=== PATIENT | male | born 1985 | race Two or more races ===

== ENCOUNTER 2023-01-23 16:57 | Emergency (ER) | payer MEDICAID ==
[~2023-01-23] VITALS: Ht 185.4 cm; Wt 95.3 kg
[2023-01-23] MEDS ORDERED: MIDAZOLAM 50 MG/10 ML VIAL ONE (17:26)
[2023-01-23] MEDS ORDERED: MIDAZOLAM HCL 2 MG/2ML VIAL IM ONE ×2 (17:30→23:30)
[2023-01-23 20:07] LABS: BASOPHILS # (AUTO) 0.1 K/uL (0.0-0.2); BASOPHILS % (AUTO) 0.5 % (0.0-2.0); EOSINOPHILS % (AUTO) 0.1 % (0.0-6.0); HEMATOCRIT 37 % (39-51); LYMPHOCYTES # (AUTO) 1.8 K/uL (0.8-4.8); LYMPHOCYTES % (AUTO) 18.1 % (20.0-44.0); MEAN CORPUSCULAR HEMOGLOBIN 32 PG (26.0-33.0); MEAN CORPUSCULAR HGB CONC 35 g/dl (31.0-36.0); MEAN CORPUSCULAR VOLUME 91 fL (80-96); MONOCYTES # (AUTO) 0.9 K/uL (0.1-1.30); MONOCYTES % (AUTO) 9.3 % (2.0-12.0); NEUTROPHILS # (AUTO) 7.3 K/uL (1.8-8.9); PLATELET COUNT (AUTO) 311 K/uL (150-450); RED BLOOD CELL COUNT(AUTO) 4.08 MIL/uL (4.5-6.0); RED CELL DISTRIBUTION WIDTH 13.9 % (11.5-15.0); WHITE BLOOD COUNT (AUTO) 10.1 K/uL (4.3-11.0)
[2023-01-23 20:15] LABS: CARBON DIOXIDE 26 mmol/L (21-32); CHLORIDE 102 mmol/L (98-107); CREATININE 1.2 mg/dL (0.6-1.3); GLUCOSE 91 mg/dL (74-106); POTASSIUM 3.6 mmol/L (3.5-5.1); SODIUM SERUM 137 mmol/L (136-145); UREA NITROGEN, BLOOD 14 mg/dL (7-18)
[2023-01-23 20:21] LABS: ACETAMINOPHEN 0 ug/ml (10-30); ALANINE AMINOTRANSFERASE 35 U/L (12-78); ALBUMIN 4.1 g/dL (3.4-5.0); ALCOHOL, BLOOD < 3 mg/dL (0-10); ALKALINE PHOSPHATASE 67 U/L (46-116); ASPARTATE AMINOTRANSFERASE 47 U/L (15-37); BILIRUBIN,DIRECT 0.4 mg/dL (0.0-0.2); BILIRUBIN,TOTAL 3.8 mg/dL (0.2-1.0); SALICYLATE < 2.3 mg/dL (2.8-20.0); TOTAL PROTEIN, SERUM 6.9 g/dL (6.4-8.2)
[2023-01-23 21:06] LABS: APPEARANCE,URINE CLEAR (CLEAR); BILIRUBIN,URINE 1+ (NEGATIVE); BLOOD, URINE 3+ Ery/uL (NEGATIVE); COLOR,URINE YELLOW (YELLOW); KETONES,URINE 3+ mg/dL (NEGATIVE); LEUKOCYTE ESTERASE ,URINE NEGATIVE (NEGATIVE); NITRITE, URINE NEGATIVE (NEGATIVE); PH,URINE 6.5 (5.0-8.0); PROTEIN,URINE TRACE mg/dl (NEGATIVE); UGLUCOSE NEGATIVE (NEGATIVE)
[2023-01-23 21:36] LABS: ADD URINE CULTURE NO; BACTERIA,URINE None seen /HPF (None Seen); RBC,URINE 51-80 /HPF (0-2); WBC,URINE 0-2 /HPF (0-3)
[2023-01-23] MEDS ORDERED: OLANZAPINE 5 MG TABLET ONE (21:40)
[2023-01-23 21:42] LABS: BARBITURATE, URINE NEGATIVE (NEGATIVE); COCCAINE, URINE NEGATIVE (NEGATIVE); OPIATE, URINE NEGATIVE (NEGATIVE); PHENCYCLIDINE SCREEN,URINE NEGATIVE (NEGATIVE)
[2023-01-23 21:55] LABS: AMPHETAMINE, URINE POSITIVE (NEGATIVE); BENZODIAZEPINE, URINE POSITIVE (NEGATIVE); CANNABINOID, URINE POSITIVE (NEGATIVE)
[2023-01-23] MEDS ORDERED: OLANZAPINE 5 MG TABLET PO ONE (22:00)
[2023-01-23] MEDS ORDERED: IV NS 0.9% 1,000 ML BAG IV ONE (22:30)
[2023-01-23 22:39] LABS: INR 1.16 (0.91-1.10); PROTHROMBIN TIME 12.2 SECS (9.2-11.1)
[2023-01-23] MEDS ORDERED: diphenhydrAMINE HCL 50 MG/ML VIAL ONE (23:28)
[2023-01-23] MEDS ORDERED: MIDAZOLAM HCL 5 MG/5ML VIAL ONE (23:28)
[2023-01-23] MEDS ORDERED: diphenhydrAMINE HCL 50 MG/ML VIAL IM ONE (23:30)
[2023-01-24] MEDS ORDERED: LORAZEPAM INJ 2 MG/ML VIAL ONE (00:30)
[2023-01-24] MEDS ORDERED: HALOPERIDOL LACTATE INJ 5 MG/ML VIAL IM ONE (00:30)
[2023-01-24] MEDS ORDERED: LORAZEPAM INJ 2 MG/ML VIAL IM ONE (00:30)
[2023-01-24] MEDS ORDERED: HALOPERIDOL LACTATE INJ 5 MG/ML VIAL ONE (00:30)
[2023-01-24 16:10] VITALS: BP 131/72; TEMP 98.1; O2SAT 98
== END 2023-01-24 18:11 ==
LOC: ER 16:57
DX: F19.10 Other psychoactive substance abuse, uncomplicated (principal); R45.1 Restlessness and agitation; Z20.822 Contact with and (suspected) exposure to COVID-19
CPT/HCPCS: 99285; 96372 ×4; 85025; 80048; 80076; 85610; 85045; 81001; 36415; 87426; 80143; 80320; 80307; J1200; J2250 ×2; J7030; C9803; J2060; J1630; G0480

== ENCOUNTER 2023-01-25 18:04 | Emergency (ER) | payer MEDICAID ==
[~2023-01-25] VITALS: Ht 185.4 cm; Wt 95.3 kg
[2023-01-25] MEDS ORDERED: DIAZEPAM 5 MG/ML 2 ML DISP.SYRIN IV ONE (18:30)
[2023-01-25] MEDS ORDERED: diphenhydrAMINE HCL 50 MG/ML VIAL IV ONE (18:30)
[2023-01-25] MEDS ORDERED: diphenhydrAMINE HCL 50 MG/ML VIAL ONE (18:42)
[2023-01-25] MEDS ORDERED: DIAZEPAM 5 MG/ML 2 ML DISP.SYRIN ONE (18:42)
[2023-01-25 21:29] VITALS: BP 133/88; TEMP 98.1; O2SAT 99
== END 2023-01-25 21:35 | disposition home or self-care (01) ==
LOC: ER 18:12
DX: M27.8 Other specified diseases of jaws (principal)
CPT/HCPCS: 99284; 96374; 96375; J3360; J1200